=== PATIENT | male | born 1945 | race African-American/Black ===

== ENCOUNTER 2020-08-30 11:46 | Inpatient (IN) | payer MEDICARE, OTHER ==
--- OUTSIDE RECORDS SUMMARY | 2020-08-30 11:49 | XMS REPORT | Continuity of Care Document ---
:[address] [facility] t Address [address] [place] [address] Care Team Providers Name Role Phone Unavailable Unavailable Unavailable Problems This patient has no known problems. Allergies, Adverse Reactions, Alerts This patient has no known allergies or adverse reactions. Medications This patient has no known medications. Procedures This patient has no known procedures. Encounters Start End Encounter Admission Attending Care Care Encounter Source Date/Time Date/Time Type Type Clinicians Facility Department ID 2020-08-17 2020-08-17 Outpatient [facility] [id number] 00:00:00 00:00:00 [facility] 2020-08-02 2020-08-02 Outpatient [facility] [id number] [facility] 00:[facility] 00[facility]:00 [facility] Results This patient has no known results.
[2020-08-30] MEDS ORDERED: NA CHLORIDE 0.9% 1,000 ML ONE (12:35)
[2020-08-30] MEDS ORDERED: ONDANSETRON 4 MG/2 ML VIAL ONE (12:35)
[2020-08-30] MEDS ORDERED: HYDROMORPHONE HCL 1 MG/ML INJ ONE (12:35)
[2020-08-30] MEDS ORDERED: NA CHLORIDE 0.9% 100 ML ONE (12:35)
[2020-08-30 13:04] LABS: Absolute Lymphocytes (CBC) 0.9 K/uL (0.7-4.9); Basophils % 0.9 % (0-1.3); Hematocrit 25.2 % (39.6-49.0); Lymphocytes % 21.3 % (15.3-44.8)
[2020-08-30 13:07] LABS: Protime INR 1.2
[2020-08-30 13:15] LABS: ALT/SGPT 17 U/L (12-78); AST/SGOT 22 U/L (15-37); Albumin 3.7 g/dL (3.4-5.0); Alkaline Phosphatase 862 U/L (45-117); Amylase 49 U/L (25-115); BUN Blood Urea Nitrogen 21 mg/dL (7-18); Bicarbonate 31 mmol/L (21-32); Bilirubin Direct 0.1 mg/dL (0-0.2); Bilirubin Total 0.4 mg/dL (0.2-1.0); Creatine Phosphokinase 61 U/L (39-308); Glucose Level 122 mg/dL (74-106); Lipase 97 U/L (73-393); Potassium 4.3 mmol/L (3.5-5.1); Protein, Total 7.4 g/dL (6.4-8.2); Sodium Level 146 mmol/L (136-145); Troponin (Emerg Dept Use Only) 0.03 ng/mL (0.0-0.045)
[2020-08-30 13:23] LABS: CKMB Creatine Kinase MB < 1.0 ng/mL (1.0-3.6)
--- NOTE | 2020-08-30 13:30 | RAD REPORT ---
EXAM DESCRIPTION: CT - Chest Abd Pelvis Wo Con - 08/30/2020 1:05 pm CLINICAL HISTORY: Chest and abdomen pain. Low back pain;Fever;SOB COMPARISON: No comparisons TECHNIQUE: A limited noncontrast study was performed. All CT scans are performed using dose optimization technique as appropriate and may include automated exposure control or mA/KV adjustment according to patient size. FINDINGS: Small left and small to moderate right loculated pleural effusions are seen.Mild lung opac ities particularly in the right lower lobe probably represent atelectasis.It is difficult to exclude early/mild infiltrate/ pneumonia in the right base as well.No intrathoracic adenopathy. The liver, kidneys, spleen, pancreas and adrenal glands show no acute process. Benign hepatic and evy al cysts noted. No bowel obstruction, free air, free fluid or abscess. Small umbilical hernia containing in nonobstru cted section of small bowel seen. No evidence of appendicitis. No pathologic lymphadenopathy in the a bdomen or pelvis. A prominent diffuse sclerotic appearance to the level of the bones noted. Right-sided port catheter n oted. IMPRESSION: Bilateral pleural effusions, greater on the right with atelectasis or infiltrate in the right lung base. Diffuse bony sclerosis could be related to underlying metastatic disease or metabolic condition. Joe mmend correlation with clinical history.
[2020-08-30 13:40] LABS: Anisocytosis 1+; Blood Morphology Comment NOTED (NOT SEEN); Macrocytosis 1+; Platelet Estimate ADEQ; Polychromasia SLIGHT
[2020-08-30 13:41] LABS: Hypochromasia 1+
--- NOTE | 2020-08-30 13:43 | RAD REPORT ---
EXAM DESCRIPTION: RAD - Chest Single View - 08/30/2020 1:23 pm CLINICAL HISTORY: SOB Chest pain. COMPARISON: No comparisons FINDINGS: Portable technique limits examination quality. Extensive bony sclerosis is present. Mild opacification in the right lower lung probably a combinatio n of atelectasis and effusion. The heart is upper limit normal in size.Right-sided port catheter tip in the SVC.
[2020-08-30] MEDS ORDERED: CEFTRIAXONE/SWI 1gm 1 GM/10 ML SYR ONE (15:02)
--- NOTE | 2020-08-30 15:58 | ER ---
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 Coronavirus screen: Client denies travel out of the [place] in the last 14 days. shortness of breath, Client presents with at least one sign or symptom that may indicate coronavirus-19. Standard/surgical mask placed on the client. Provider contacted for isolation considerations. Ebola Screen: No symptoms or risks identified at this time. Initial Sepsis Screen: Does the patient meet any 2 criteria? No. Patient's initial sepsis screen is negative. Does the patient have a suspected source of infection? No. Patient's initial sepsis screen is negative. Risk Assessment: Do you want to hurt yourself or someone else? Patient reports no desire to harm self or others. Onset of symptoms is unknown. Care prior to arrival: None. Transition of care: patient was not received from another setting of care. 12:05 Method Of Arrival: EMS: [facility] 12:05 Acuity: [place] 3 jl7 Historical: - Allergies: 12:07 Tylenol; jl7 - PMHx: 12:07 Prostate cancer; Bone cancer; Hypertensive disorder; Diabetes mellitus; jl7 - Immunization history:: Adult Immunizations up to date, Client reports receiving the 2nd dose of the Covid vaccine. - Social history:: Smoking status: Patient denies any tobacco usage or history of. Screenin:46 Abuse screen: Denies threats or abuse. Denies injuries from another. Nutritional ad5 screening: No deficits noted. Tuberculosis screening: No symptoms or risk factors identified. Fall Risk. Assessment: 12:00 General: Appears in no apparent distress. uncomfortable, Behavior is cooperative. Pain: jl7 Complains of pain in all over. Neuro: Level of Consciousness is awake. Cardiovascular: Patient's skin is warm and dry. Respiratory: Airway is patent Respiratory effort is even, unlabored, Respiratory pattern is symmetrical. Derm: Skin is dry, Skin is normal, Skin temperature is warm. 13:00 Reassessment: Patient appears in no apparent distress at this time. No changes from jl7 previously documented assessment. Patient and/or family updated on plan of care and expected duration. Pain level reassessed. Patient is alert, oriented x 3, equal unlabored respirations, skin warm/dry/pink. 14:00 Reassessment: Patient appears in no apparent distress at this time. Pt laying in bed jl7 with eyes closed, respirations even and unlabored, no signs of distress noted. Family remains at bedside. 14:09 Reassessment: Contacted [facility] community hospice consult per [employer] VO. [facility] staff states aa5 they will call back with update. . 15:00 Reassessment: Patient appears in no apparent distress at this time. No changes from jl7 previously documented assessment. Patient and/or family updated on plan of care and expected duration. Pain level reassessed. 15:14 Reassessment: [facility] at bedside. [facility] 15:30 Reassessment: Kelly RN from [facility] reports he will be an inpatient Hospice pt and 7 [facility] will facilitate the admission with Dr. Alfonso with oncology. 19:05 Reassessment: Pt resting comfortably in stretcher, appears drowsy, responds to tactile ad5 stimulation. Family at bedside request for pt brief changed. Pt with noted urine to brief, cleaned and new brief applied at this time. Pt positioned for comfort, bed remains low and locked, bedrails x 2, call light within reach. Family remains at bedside, informed awaiting bed placement at this time. 20:15 Reassessment: No changes from previously documented assessment. Family remains at ad5 bedside. NAD noted, will continue to monitor. Vital Signs: 12:00 BP 134 / 69; Pulse 85; Resp 19; Pulse Ox 100% 2 lpm ; jl7 12:05 BP 132 / 71; Pulse 85; Resp 28; Temp 98.7(TE); Pulse Ox 100% on 2 lpm NC; jl7 12:14 Weight 77.11 kg; jl7 13:00 BP 127 / 65; Pulse 76; Resp 16; Pulse Ox 97% on 2 lpm NC; jl7 14:35 BP 116 / 60; Pulse 76; Resp 15; Pulse Ox 100% ; jl7 15:49 BP 106 / 59; Pulse 75; Resp 17; Pulse Ox 92% 2 lpm ; jl7 19:38 BP 99 / 56; Pulse 74; Resp 18 S; Pulse Ox 100% ; ad5 20:46 BP 104 / 57; Pulse 76; Resp 18 S; Pulse Ox 99% ; ad5 ED Course: 11:47 Patient arrived in ED. jl7 11:48 Naveed Gambino NP is PHCP. pm1 11:48 Americo Wilson MD is Attending Physician. pm1 12:05 Denise Kapadia, ADELINE is Primary Nurse. jl7 12:07 Triage completed. jl7 12:07 Arm band placed on right wrist. jl7 12:35 Accessed Port-a-Cath. using accessed w/ # 20 Giles needle, Clean \T\ dry. Dressing jl7 intact. Good blood return. Flushes easily. 12:35 Initial lab(s) drawn, by me, sent to lab. jl7 13:05 CT Chest Abdomen Pelvis W/O Contrast In Process Unspecified. EDMS 13:23 Chest Single View XRAY In Process Unspecified. EDMS 15:57 Rita Catherine MD is Hospitalizing Provider. pm1 19:15 Patient has correct armband on for positive identification. Placed in gown. Bed in low ad5 position. Call light in reach. Side rails up X2. Adult w/ patient. quality assurance monitor final on. Pulse ox on. NIBP on. 20:56 No provider procedures requiring assistance completed. Patient admitted, IV remains in ad5 place. Administered Medications: 12:54 Drug: Zofran (Ondansetron) 4 mg Route: IVP; Site: Port-a-cath; jl 15:49 Follow up: Response: No adverse reaction jl7 12:55 Drug: Dilaudid (HYDROmorphone) 1 mg Route: IVP; Site: Port-a-cath; jl7 13:30 Follow up: Response: No adverse reaction; Pain is decreased jl7 12:56 Drug: NS 0.9% (30 ml/kg) 30 ml/kg Route: IV; Rate: bolus; Site: Port-a-cath; jl7 14:00 Follow up: Response: No adverse reaction; IV Status: Completed infusion; IV Intake: [facility] 1000ml 15:49 Drug: Rocephin (cefTRIAXone) 1 grams Route: IV; Rate: calculated rate; Site: [facility] Port-a-cath; 15:52 Follow up: Response: No adverse reaction; IV Status: Completed infusion jl7 Intake: 14:00 IV: 1000ml; Total: 1000ml. jl7 Outcome: 15:57 Decision to Hospitalize by Provider. pm1 20:57 Admitted to Med/surg accompanied by nurse, via stretcher, with chart, Report called to ad5 ADELINE Carnes 20:57 Condition: stable 20:57 Instructed on the need for admit. 21:34 Patient left the ED. bb Signatures: Dispatcher [employer] EDKristi Hassan RN RN bb Sigrid Alexander RN RN aa5 Naveed Gambino, [employer] pm1 Denise Kapadia RN RN jl7 [place] ad5 Corrections: (The following items were deleted from the chart) 15:48 14:35 Reassessment: Patient appears in no apparent distress at this time. No changes jl7 from previously documented assessment. Patient and/or family updated on plan of care and expected duration. Pain level reassessed. Patient is alert, oriented x 3, equal unlabored respirations, skin warm/dry/pink. jl7
--- NOTE | 2020-08-30 15:58 | EDPHYS ---
Physician Documentation [facility] Name: Tevin Jauregui Age: 75 yrs Sex: Male : 1945 Arrival Date: 08/30/2020 Time: 11:47 Bed 6 Private MD: ED Physician Americo Wilson HPI: 08/30 12:08 This 75 yrs old Black Male presents to ER via EMS with complaints of Shortness of pm1 breath. 12:08 The patient has shortness of breath at rest. Onset: The symptoms/episode began/occurred pm1 5 day(s) ago. Duration: The symptoms are continuous. The patient's shortness of breath is aggravated by nothing, is alleviated by nothing. Associated signs and symptoms: Pertinent positives: Altered mental status. Patient not responsive for the past 5 days and is not eating or drinking well. Severity of symptoms: in the emergency department the symptoms are worse. The patient has been recently seen by a physician: the patient's primary care provider, Dr. Brady with similar presenting complaints, attempting to assist the family with hospice. Patient with prostate cancer, metastasis to spine and lungs. Patient could not tolerate cancer therapy and has no treatment plans for stage 4 cancer. Patient was in hospice status while he lived in [place]. Moved here to [place] recently and is trying to get into hospice status again. Historical: - Allergies: 12:07 Tylenol; jl7 - PMHx: 12:07 Prostate cancer; Bone cancer; Hypertensive disorder; Diabetes mellitus; jl7 - Immunization history:: Adult Immunizations up to date, Client reports receiving the 2nd dose of the Covid vaccine. - Social history:: Smoking status: Patient denies any tobacco usage or history of. ROS: 12:08 Constitutional: Positive for poor PO intake. pm1 12:08 Cardiovascular: Positive for edema. 12:08 Respiratory: Positive for shortness of breath. 12:08 Abdomen/GI: Positive for constipation, Negative for vomiting. 12:08 Back: Positive for pain at rest, of the low back area. 12:08 All other systems are negative. 12:08 ENT: Negative for injury, pain, and discharge, Neck: Negative for injury, pain, and pm1 swelling, MS/Extremity: Negative for injury and deformity, Skin: Negative for injury, rash, and discoloration. 12:08 Eyes: Positive for swelling, of the left eye. 12:08 Neuro: Positive for altered mental status. Exam: 12:08 Head/Face: Normocephalic, atraumatic. pm1 12:08 Skin: Warm, dry with normal turgor. Normal color with no rashes, no lesions, and no evidence of cellulitis. 12:08 Constitutional: The patient appears well developed, well groomed, obviously ill, in obvious pain. 12:08 ENT: Mouth: Lips: dry, Oral mucosa: pink and intact, dry. 12:08 Cardiovascular: Rate: normal, Rhythm: regular, Edema: 3+ edema to level of left ankle and right ankle. 12:08 Respiratory: Breath sounds: decreased breath sounds, are located in both bases. 12:08 Abdomen/GI: Inspection: abdomen appears normal, Palpation: soft, in all quadrants. 12:08 Musculoskeletal/extremity: Exam is negative for acute changes. 12:08 Neuro: Orientation: Not oriented to person, place, time, situation, Mentation: responsive to pain. Vital Signs: 12:00 BP 134 / 69; Pulse 85; Resp 19; Pulse Ox 100% 2 lpm ; jl7 12:05 BP 132 / 71; Pulse 85; Resp 28; Temp 98.7(TE); Pulse Ox 100% on 2 lpm NC; jl7 12:14 Weight 77.11 kg; jl7 13:00 BP 127 / 65; Pulse 76; Resp 16; Pulse Ox 97% on 2 lpm NC; jl7 14:35 BP 116 / 60; Pulse 76; Resp 15; Pulse Ox 100% ; jl7 15:49 BP 106 / 59; Pulse 75; Resp 17; Pulse Ox 92% 2 lpm ; jl7 19:38 BP 99 / 56; Pulse 74; Resp 18 S; Pulse Ox 100% ; ad5 20:46 BP 104 / 57; Pulse 76; Resp 18 S; Pulse Ox 99% ; ad5 MDM: 12:06 Patient medically screened. pm1 13:45 Data reviewed: vital signs. Data interpreted: Pulse oximetry: on 2L(s) per nasal pm1 canula, is 100 %. Interpretation: normal. 14:04 ED course: Discussed at length with the patient's daughter, son, and son-in-law pm1 regarding diagnosis and findings. They would like to discuss options further with hospice. 15:41 ED course: Kelly Almanzar from [facility] evaluated the patient and discussed options pm1 with the patient . The patient's family agreed to place patient in hospice and place the patient on DNR status. She will contact Dr. Alfonso for placing the patient in [facility] hospice for 5 days. 08/30 12:07 Order name: Amylase, Serum pm08/30 12:07 Order name: Basic Metabolic Panel pm1 08/30 12:07 Order name: Blood Culture Adult (2) pm1 08/30 12:07 Order name: CBC with Diff pm08/30 12:07 Order name: CPK; Complete Time: 13:24 pm1 08/30 12:07 Order name: Ckmb; Complete Time: 13:24 pm1 08/30 12:07 Order name: LFT's; Complete Time: 13:24 pm1 08/30 12:07 Order name: Lactate; Complete Time: 13:23 pm1 08/30 12:07 Order name: Lipase; Complete Time: 13:24 pm1 08/30 12:07 Order name: Procalcitonin; Complete Time: 17:02 pm1 08/30 12:07 Order name: Protime (+inr); Complete Time: 13:23 pm1 08/30 12:07 Order name: Ptt, Activated; Complete Time: 13:23 pm1 08/30 12:07 Order name: Troponin (emerg Dept Use Only); Complete Time: 13:24 pm1 08/30 12:07 Order name: Urine Culture pm08/30 12:07 Order name: Urine Microscopic Only pm08/30 12:07 Order name: Chest Single View XRAY; Complete Time: 13:45 pm1 08/30 12:07 Order name: Accucheck; Complete Time: 12:54 pm08/30 12:07 Order name: Cardiac monitoring; Complete Time: 12:54 pm08/30 12:08 Order name: Amylase; Complete Time: 13:24 EDMS 08/30 12:08 Order name: Basic Metabolic Panel; Complete Time: 13:24 EDMS 08/30 12:08 Order name: Blood Culture EDMS 08/30 12:08 Order name: CBC with Automated Diff EDMS 08/30 12:53 Order name: CT Chest Abdomen Pelvis W/O Contrast; Complete Time: 13:33 pm1 08/30 13:41 Order name: Manual Differential EDMS 08/30 17:31 Order name: COVID-19 : Document "Date of Symptom Onset" if Symptomatic. jl7 08/30 20:31 Order name: SARS-COV-2 RT PCR; Complete Time: 06:20 EDMS 08/30 12:07 Order name: EKG - Nurse/Tech; Complete Time: 13:48 pm1 08/30 12:07 Order name: IV Saline Lock - Large Bore; Complete Time: 12:54 pm1 08/30 12:07 Order name: Labs collected and sent; Complete Time: 12:54 pm1 08/30 12:07 Order name: O2 Per Protocol; Complete Time: 12:54 pm1 08/30 12:07 Order name: O2 Sat Monitoring; Complete Time: 12:54 pm1 Administered Medications: 12:54 Drug: Zofran (Ondansetron) 4 mg Route: IVP; Site: Port-a-cath; [facility] 15:49 Follow up: Response: No adverse reaction [facility] 12:55 Drug: Dilaudid (HYDROmorphone) 1 mg Route: IVP; Site: Port-a-cath; [facility] 13:30 Follow up: Response: No adverse reaction; Pain is decreased jl 12:56 Drug: NS 0.9% (30 ml/kg) 30 ml/kg Route: IV; Rate: bolus; Site: Port-a-cath; [facility] 14:00 Follow up: Response: No adverse reaction; IV Status: Completed infusion; IV Intake: [facility] 1000ml 15:49 Drug: Rocephin (cefTRIAXone) 1 grams Route: IV; Rate: calculated rate; Site: [facility] Port-a-cath; 15:52 Follow up: Response: No adverse reaction; IV Status: Completed infusion jl7 Disposition: 08/31 07:08 Co-signature as Attending Physician, Americo Wilson MD I agree with the assessment and kdr plan of care. 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
[2020-08-30] MEDS ORDERED: ONDANSETRON 4 MG/2 ML VIAL IV PRN (21:42)
[2020-08-30] MEDS ORDERED: MORPHINE 2 MG/ML SYR IV PRN (21:42)
[2020-08-30] MEDS ORDERED: LORazepam 2 MG/ML VIAL IV PRN (21:42)
[2020-08-30] MEDS ORDERED: ACETAMINOPHEN 500 MG TAB PO PRN (21:42)
[2020-08-30] MEDS ORDERED: SCOPOLAMINE HYDROBROMIDE PATCH TD PRN (21:42)
[2020-08-30 22:05] VITALS: BMI 24.8
[2020-08-31 08:30] VITALS: BP 115/53; TEMP 98.4
[2020-08-31 09:31] VITALS: O2SAT 100
[2020-08-31] MEDS ORDERED: LORazepam 2 MG/ML VIAL IV SCH (10:00)
--- NOTE | 2020-08-31 11:47 | EKG ---
Test Date: 2020-08-30 Test Time: 13:42:40 [id number] Software Engineer: IZABELLA MEASUREMENT RESULTS: Intervals: Rate: 78 NC: 196 QRSD: 78 QT: 396 QTc: 451 [place]: P: 61 NC: 196 QRS: -7 T: 58 INTERPRETIVE STATEMENTS: Normal sinus rhythm Cannot rule out Anterior infarct, age undetermined Abnormal ECG No previous ECG available for comparison Electronically Signed On 08-31-20 11:47:03 CDT by Terrance Leong
== END 2020-08-31 12:32 | disposition expired | DRG 951 ==
LOC: ER 11:46 → ERHOLD 17:20 → 2ND 21:42
PROVIDERS: ADMIT Internal Medicine Hematology & Oncology; ATTEND Internal Medicine Hematology & Oncology
DX: Z51.5 Encounter for palliative care (principal); C79.51 Secondary malignant neoplasm of bone; C61 Malignant neoplasm of prostate; I10 Essential (primary) hypertension; E11.9 Type 2 diabetes mellitus without complications
CPT/HCPCS: 36415; 71045; 71250; 74176; 80048; 80076; 82150; 82550; 82553; 83605; 83690; 84145; 84484; 85025; 85610; 85730; 87040; 87070; 87077; 87186; 87205; 93005; 96365; 96375; 99285; J0696; J1170; J2270; J2405; J7030; U0003